=== PATIENT | male | born 1945 | race Caucasian/White ===

== ENCOUNTER → 2018-06-29 | Day surgery (SDC) | payer MEDICARE, OTHER ==
[2018-06-28 11:02] LABS: BASOPHILS % 0.6 % (0.0-1.0); EOSINOPHILS # (AUTO) 0.2 (0.0-0.4); EOSINOPHILS % 3.1 % (0.0-6.0); HEMATOCRIT 40.8 % (38.2-49.6); HEMOGLOBIN 13.5 g/dL (14.0-18.0); LYMPHOCYTES # (AUTO) 2.1 (1.0-3.2); LYMPHOCYTES % 33.1 % (18.0-39.1); MEAN CORPUSCULAR HEMOGLOBIN 31.3 pg (28-32); MEAN CORPUSCULAR HGB CONC 33.1 g/dL (31-35); MEAN CORPUSCULAR VOLUME 94.7 fL (81-99); MONOCYTES # (AUTO) 0.5 (0.2-0.8); MONOCYTES % 8.1 % (4.4-11.3); NEUTROPHILS # (AUTO) 3.4 (2.1-6.9); NEUTROPHILS % 54.8 % (38.7-80.0); PLATELET COUNT 217 x10e3/uL (140-360); RED BLOOD COUNT 4.31 x10e6/uL (4.3-5.7); RED CELL DISTRIBUTION WIDTH 12.4 % (11.7-14.4)
[2018-06-28 12:07] LABS: ALBUMIN 3.9 g/dL (3.5-5.0); ALBUMIN/GLOBULIN RATIO 1.3 (0.8-2.0); ANION GAP 10.5 mmol/L (8-16); CALCIUM 9.7 mg/dL (8.4-10.2); CREATININE, SERUM 1.31 mg/dL (0.72-1.25); POTASSIUM 3.5 mmol/L (3.5-5.1)
[2018-06-28 12:20] LABS: CHOL/HDL RATIO 3.8 (3.9-4.7)
[~2018-06-29] VITALS: Ht 188 cm; Wt 105.2 kg
[2018-06-29] VITALS (11 sets, daily range): BP systolic 100–138; BP diastolic 61–79
[~2018-06-29] MED LIST: ALPRAZOLAM 0.5 MG TAB ONE; AMLODIPINE BESYL5 MG PO; CETIRIZINE HCL5 MG PO; CITALOPRAM HBR10 MG PO; CO Q-1010 MG PO; DIAZEPAM5 MG PO; DIPHENHYDRAMINE HCL 25 MG CAP ONE; ESCITALOPRAM OX20 MG PO; ETODOLAC400 MG PO; FENTANYL CITRATE/PF 100MCG/2 ML INJ ONE; FLUTICASONE PRO16 GM NS; HEPARIN SOD (PORCINE) 1000 UNIT/ML 30ML ONE; HEPARIN SOD/SOD CHLORIDE 2,000 ML ONE; IOPAMIDOL 370 MG/ML 200 ML INFUS..BTL INJ ONE; LIDOCAINE HCL 2% LOCAL 20 ML VIAL ONE; MEN'S ONE DAIL1 EACH PO; MIDAZOLAM HCL 2 MG/2 ML VIAL ONE; NITROGLYCERIN/D5W 200 MCG/ML 250 ML ONE; ONE DAILY FOR1 EAC1 PO; PLAVIX75 MG PO; SODIUM CHLORIDE 0.9% 1000ML 1,000 ML ONE; VERAPAMIL HCL 2.5 MG/ML 2 ML VIAL ONE; VISION VITAMIN1 EAC1 PO; ZOCOR20 MG PO; ZOLPIDEM TARTRA10 MG PO; [UNRECOGNIZED DRUG - CODE] PO
--- OUTSIDE RECORDS SUMMARY | 2018-06-29 06:15 | XMS REPORT | Summary of Care ---
Author Author [facility] Organization [facility] Address Unknown Phone Unavailable Encounter HQ Encntr_alias(FIN) [id number] Date(s): 07/03/16 - 07/03/16 [facility] [address] [place] [address]- Discharge Disposition: Home or Self Care Attending Physician: Elena Blancas MD Referring Physician: Elena Blancas MD Vital Signs No data available for this section Problem List No data available for this section Allergies, Adverse Reactions, Alerts No data available for this section Medications No data available for this section Results No data available for this section Immunizations No data available for this section Procedures No data available for this section Social History No data available for this section Assessment and Plan No data available for this section
--- OUTSIDE RECORDS SUMMARY | 2018-06-29 06:15 | XMS REPORT | Continuity of Care Document ---
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, UNSPEC Active 06/26/2016 [facility] MANTLE CELL LYMPHOMA, UNSPECIFIED SITE Active [facility] Medications Medication Details Route Status Patient Instructions Ordering Provider Order Date Source Allergies, Adverse Reactions, Alerts Substance Category Reaction Severity Reaction type Status Date Reported Comments Source Immunizations Immunization Date Given Site Status Last Updated Comments Source Results Order Name Results Value Reference Range Date Interpretation Comments Source Chest/Abdomen/Pelvis wo IV contrast CT Chest/Abdomen/Pelvis wo IV contrast CT Patient Name: WELLINGTON ALMENDAREZ : 1945; Age: 71 years Male MR: [id number] Study: Chest/Abdomen/Pelvis wo IV contrast CT 07/03/2016 10:42 AM BATTERY CHARGER CLINICAL INDICATION: R13.13 Dysphagia, pharyngeal phase, history of lymphoma COMPARISON: None TECHNIQUE: Multidetector CT imaging was performed from the thoracic inlet through the symphysis with multiplanar reformations obtained , without IV contrast. DLP: 1305 mGy-cm FINDINGS: CHEST: Lung parenchyma: The lungs are clear without evidence of a consolidation. Pleura: No effusion or pneumothorax. Airways: The central airways appear patent. Mediastinum: Heterogeneous thyroid. No significant lymphadenopathy. Coronary artery calcifications. Trace pericardial effusion. Bones and soft tissues: Unremarkable. ABDOMEN/PELVIS: Hepatobiliary: Fatty liver. No focal hepatic lesion. Unremarkable gallbladder. Pancreas: No focal mass or ductal dilatation. Spleen: No splenomegaly. Adrenals: No nodules. Kidneys: No hydronephrosis or renal stones. Pelvic organs: Unremarkable. Peritoneum/Retroperitoneum: No free air or free fluid. Lymph nodes: No lymphadenopathy. Vessels: Unremarkable. Bowel: No significant bowel thickening or dilatation. The appendix is visualized and appears unremarkable. Bones and soft tissues: Small fat-containing left inguinal and umbilical hernias. Degenerative changes of the lumbar spine. Right flank spinal stimulator device noted. IMPRESSION: Fatty liver. Small fat-containing left inguinal and umbilical hernias. : [id number] 07/03/2016 - - Read by: Linette Hale MD Dictated Date/time: 07/03/16 17:13 Electronically Signed by: Linette Hale MD 07/03/16 17:22 FINAL REPORT [facility] Vital Signs Vital Sign Value Date Comments Source Encounters Location Location Details Encounter Type Encounter Number Reason For Visit Attending Provider ADM Date DC Date Status Source [facility] [id number] Elena Blancas 07/03/2016 07/04/2016 [facility] Procedures Procedure Code Date Perfomer Comments Source
--- NOTE | 2018-06-29 09:11 | Operative Report ---
DATE OF PROCEDURE: June 29, 2018 INDICATIONS: Coronary artery disease and abnormal stress test with inferior ischemia. PROCEDURES PERFORMED 1. Left heart catheterization. 2. Selective coronary angiography. 3. Left ventriculography. 4. Deployment of right wrist transradial band. COMPLICATIONS: None. RECOMMENDATIONS: Medical therapy. Access was obtained in the right inguinal artery. A 5-Niuean sheath was placed. Diagnostic coronary angiogram revealed 50% stenosis in the proximal right coronary artery with spasm. The remaining vessel had mild 10% to 20% stenosis. Left main circumflex and left anterior descending artery had mild 10% to 20% stenosis. Excellent flow in all vessels. No critical stenosis or occlusions. No intervention was deemed necessary. LV ejection fraction was 70% with end-diastolic pressure of 12. No gradient across the aortic valve on pullback. Guide and sheath were removed. Right wrist TR band applied. Patient was discharged home same day. Job#: [id number] TONI
== END | disposition home or self-care (01) ==
LOC: CATH LAB 06:12
PROVIDERS: ATTEND Internal Medicine Interventional Cardiology
DX: I25.111 Atherosclerotic heart disease of native coronary artery with angina pectoris with documented spasm (principal); R94.39 Abnormal result of other cardiovascular function study; I10 Essential (primary) hypertension; E78.00 Pure hypercholesterolemia, unspecified; Z01.812 Encounter for preprocedural laboratory examination; M19.90 Unspecified osteoarthritis, unspecified site; Z79.02 Long term (current) use of antithrombotics/antiplatelets; Z85.72 Personal history of non-Hodgkin lymphomas; Z92.3 Personal history of irradiation; Z88.5 Allergy status to narcotic agent; Z88.0 Allergy status to penicillin
CPT/HCPCS: 36415; 80053; 80061; 85025; 93458; C1887; J1644; J2001; J2250; J7030; Q9967

== ENCOUNTER 2019-07-16 22:08 | Inpatient (IN) | payer MEDICARE ==
[~2019-07-16] VITALS: Ht 182.9 cm; Wt 94.0 kg
[~2019-07-16 22:08] MED LIST changes: -ALPRAZOLAM 0.5 MG TAB ONE; -DIPHENHYDRAMINE HCL 25 MG CAP ONE; -FENTANYL CITRATE/PF 100MCG/2 ML INJ ONE; -HEPARIN SOD (PORCINE) 1000 UNIT/ML 30ML ONE; -HEPARIN SOD/SOD CHLORIDE 2,000 ML ONE; -IOPAMIDOL 370 MG/ML 200 ML INFUS..BTL INJ ONE; -LIDOCAINE HCL 2% LOCAL 20 ML VIAL ONE; -MIDAZOLAM HCL 2 MG/2 ML VIAL ONE; -NITROGLYCERIN/D5W 200 MCG/ML 250 ML ONE; -SODIUM CHLORIDE 0.9% 1000ML 1,000 ML ONE; -VERAPAMIL HCL 2.5 MG/ML 2 ML VIAL ONE
--- OUTSIDE RECORDS SUMMARY | 2019-07-16 22:13 | XMS REPORT ---
Author Author [facility] Address Unknown Phone Unavailable Care Team Providers Care Seasonal Warehouse Associate Name Role Phone GIULIANA FONSECA Unavailable Unavailable Problems This patient has no known problems. Allergies, Adverse Reactions, Alerts This patient has no known allergies or adverse reactions. Medications This patient has no known medications. Results Test Description Test Time Test Comments Text Results Atomic Results Result Comments ANAEROBIC CULTURE 2019-07-09 16:32:00 CULTURE (BEAKER) (test yvxl=[id number]) No anaerobes isolated SURGICALLY OBTAINED CULTURE + GRAM [id number] 16:41:00* Test Item Value Reference Range Comments CULTURE (BEAKER) (test qbjp=7771) No growth GRAM STAIN RESULT (BEAKER) (test kwdr=8882) No White blood cells seen GRAM STAIN RESULT (BEAKER) (test oblt=[id number]) No organisms seen SPIN/CONCENTRATION [id number] 14:42:00* Test Item Value Reference Range Comments CONCENTRATION CHARGED (BEAKER) (test ryui=9524) Done
[2019-07-16 22:26] VITALS: BP 147/86
[2019-07-16 22:30] VITALS: BP 131/79
--- NOTE | 2019-07-16 22:45 | NUR ---
Updated Dr. Vargas on patient status, current VS/cardiac rhythm SR. Orders received.
[2019-07-16] MEDS ORDERED: ZOCOR40 MG PO (22:57)
[2019-07-16] MEDS ORDERED: PLAVIX75 MG PO (22:57)
[2019-07-16] MEDS ORDERED: CO Q-10 100 MG1 EACH PO (22:57)
[2019-07-16] MEDS ORDERED: SINGULAIR10 MG PO (22:57)
[2019-07-16] MEDS ORDERED: LEXAPRO10 MG PO (22:57)
[2019-07-16] MEDS ORDERED: IPRATROPIUM BRO15 ML (22:57)
[2019-07-16] MEDS ORDERED: ACCURETIC 20-21 EACH PO (22:57)
[2019-07-16] MEDS ORDERED: TRAZODONE HCL50 MG PO (22:57)
[2019-07-16 23:00] VITALS: BP 139/91
[2019-07-16] MEDS ORDERED: DIAZEPAM 5 MG TAB PO PRN (23:00)
[2019-07-16] MEDS ORDERED: ACETAMINOPHEN 325 MG TAB PO PRN (23:00)
[2019-07-16] MEDS ORDERED: ONDANSETRON HCL INJ 2MG/ML 2ML 2 MG/ML VIAL IV PRN (23:00)
[2019-07-16] MEDS ORDERED: TRAZODONE HCL 50 MG TAB PO PRN (23:00)
[2019-07-16] MEDS ORDERED: IPRATROPIUM BROMIDE 0.06% 42 MCG NASPR NS PRN (23:00)
[2019-07-17] VITALS (18 sets, daily range): BP systolic 109–148; BP diastolic 53–93
[2019-07-17 04:52] LABS: BASOPHILS % 0.5 % (0.0-1.0); EOSINOPHILS # (AUTO) 0.2 (0.0-0.4); EOSINOPHILS % 2.8 % (0.0-6.0); HEMATOCRIT 39.3 % (38.2-49.6); LYMPHOCYTES # (AUTO) 2.4 (1.0-3.2); LYMPHOCYTES % 28.5 % (18.0-39.1); MEAN CORPUSCULAR HEMOGLOBIN 30.7 pg (28-32); MEAN CORPUSCULAR HGB CONC 33.1 g/dL (31-35); MEAN CORPUSCULAR VOLUME 92.7 fL (81-99); MONOCYTES # (AUTO) 0.6 (0.2-0.8); MONOCYTES % 7.5 % (4.4-11.3); NEUTROPHILS # (AUTO) 5.1 (2.1-6.9); NEUTROPHILS % 60.3 % (38.7-80.0); PLATELET COUNT 220 x10e3/uL (140-360); RED BLOOD COUNT 4.24 x10e6/uL (4.3-5.7); RED CELL DISTRIBUTION WIDTH 12.4 % (11.7-14.4)
--- NOTE | 2019-07-17 04:57 | Diagnostic Imaging Report ---
EXAMINATION: CHEST SINGLE (PORTABLE) INDICATION: Atrial fibrillation. COMPARISON: None FINDINGS: TUBES and LINES: None. LUNGS: Lungs are well inflated. Central vascular congestion without pulmonary edema. Patchy bibasilar opacities. PLEURA: No pleural effusion or pneumothorax. HEART AND MEDIASTINUM: The cardiomediastinal silhouette is unremarkable. BONES AND SOFT TISSUES: No acute osseous abnormality. UPPER ABDOMEN: No free air under the diaphragm. IMPRESSION: Central vascular congestion without pulmonary edema. Patchy bibasilar opacities, likely atelectasis, although pneumonia is possible in the appropriate clinical setting. Signed by: Dr. Matteo Cedillo MD on 07/17/2019 4:54 AM
[2019-07-17 05:20] LABS: CREATINE KINASE MB 2.3 ng/mL (0-5.0)
[2019-07-17 05:43] LABS: ALBUMIN 3.6 g/dL (3.5-5.0); ALBUMIN/GLOBULIN RATIO 1.2 (0.8-2.0); ANION GAP 14.5 mmol/L (8-16); CREATININE, SERUM 1.19 mg/dL (0.72-1.25); MAGNESIUM 2.2 MG/DL (1.3-2.1); POTASSIUM 3.5 mmol/L (3.5-5.1)
--- NOTE | 2019-07-17 06:28 | NUR ---
Dr. Bonner and Dr. Good aware of consults.
[2019-07-17] MEDS ORDERED: CLOPIDOGREL BISULFATE 75 MG TAB PO SCH (09:00)
[2019-07-17] MEDS ORDERED: DOCUSATE SODIUM 100 MG CAP PO PRN (09:00)
[2019-07-17] MEDS ORDERED: MULTIVITAMINS/MINERALS TAB PO SCH (09:00)
[2019-07-17] MEDS ORDERED: HYDROCHLOROTHIAZIDE 25 MG TAB PO SCH (09:00)
[2019-07-17] MEDS ORDERED: VIT E ACETATE PO SCH (09:00)
[2019-07-17] MEDS ORDERED: FLUTICASONE PROPIONATE NASAL SPRAY NS SCH (09:00)
[2019-07-17] MEDS ORDERED: QUINAPRIL HCL 20 MG TAB PO SCH (09:00)
[2019-07-17] MEDS ORDERED: UBIDECARENONE PO SCH (09:00)
--- NOTE | 2019-07-17 10:59 | Consultation ---
DATE OF CONSULTATION: Pulmonary Critical Care Consultation CHIEF COMPLAINT: Fast heart rate. HISTORY OF PRESENT ILLNESS: The patient is a 74-year-old man. He has a history of some coronary artery disease with only a 50% blockage. He also has a history of hypertension. Last night, he noticed that his heart rate was fast on his Apple watch. He tried taking some aspirin and some Valium, but his heart rate did not improve. He denied chest pain. He did not have trouble breathing. The patient went to the [facility]. He received some metoprolol and was then transferred to the hospital. After arriving in the hospital, the patient converted back to normal sinus rhythm and is feeling fine this morning. PAST SURGICAL HISTORY: Status post back surgery. PAST MEDICAL HISTORY: 1. Hypertension. 2. Coronary artery disease with no obstructing wheezes. 3. Chronic back pain. SOCIAL HISTORY: The patient is not an active smoker. He is not an active drinker. FAMILY HISTORY: Family history is noncontributory. REVIEW OF SYSTEMS: The patient is afebrile. No headache. He is not complaining of neck pain. There is no chest pain. He did not have any trouble breathing. There is no nausea or vomiting. He has no leg edema. PHYSICAL EXAMINATION: VITAL SIGNS: The patient is afebrile, the blood pressure is 120/93, the pulse is 68, and the saturation is 98%. HEENT: Shows no facial swelling or erythema. CARDIAC: Reveals regular rate and rhythm with normal S1, S2. There are no murmurs or rubs heard. LUNGS: Auscultation of lungs reveals clear breath sounds bilaterally. There is no wheezing. ABDOMEN: Soft, nontender. There is no rebound or guarding. EXTREMITIES: Show no leg edema or calf tenderness. There are no focal neurological complaints. LABORATORY DATA: White blood cell count is 8.5 and hemoglobin is 13. The platelet count is 220. The BUN to creatinine ratio is 20:1.9. The other electrolytes within normal limits. RADIOGRAPHIC DATA: Chest x-ray shows some bibasilar atelectasis. IMPRESSION: 1. Paroxysmal atrial fibrillation, new onset. 2. Hypertension. 3. Chronic back pain. PLAN: 1. The patient is awaiting Cardiology evaluation, but this is back in normal sinus rhythm with no acute symptoms. 2. Consider amiodarone or Eliquis. 3. Echocardiogram and TSH level. MD VICTORIANO Hilliard/DEA /[id number]
[2019-07-17] MEDS ORDERED: METOPROLOL TARTRATE 25 MG TAB PO SCH ×2 (11:00→17:00)
[2019-07-17 12:17] LABS: CREATINE KINASE MB 1.5 ng/mL (0-5.0)
--- NOTE | 2019-07-17 12:39 | History and Physical ---
CHIEF COMPLAINT: Atrial flutter. HISTORY OF PRESENT ILLNESS: This is a 74-year-old male with multiple comorbidities in the past. Apparently was seeing a riddler operator as an outpatient at [facility], who has a history of chronic pain syndrome, has a pain pump, anxiety, hypertension, hyperlipidemia, presented to the [facility] ER due to elevated heart rate. The patient reports that his Iwatch yesterday noticed that his heart rate was really high and notified him due to elevated heart rate. He has experienced this before. Of note, he states that back this week on Thursday, he noticed that his heart rate was high. When he noticed that his Iwatch noticed that his heart rate is high, he checked it on a blood pressure cuff and found to have a heart rate in the 150s. He denies any chest pain, also denies any palpitations, nausea, vomiting, lightheadedness, or dizziness. Of note, he decided to go to the emergency room air at [facility] to be further evaluated. While there, he was found to have atrial flutter and was sent in for further evaluation and management at [facility]. The patient was then sent to the ICU to initially start on a diltiazem drip, but the patient converted to normal sinus rhythm prior to arrival to the ICU. The patient is currently in the ICU, being monitored and evaluated very closely. Cardiology has been consulted as well as the critical care attending. Troponins have been negative. REVIEW OF SYSTEMS: Pertinent positives: Reports just elevated heart rate. Pertinent negatives: Denies any chest pain, nausea, vomiting, diarrhea, dysuria, hematuria, frequency, urgency, lightheadedness, dizziness, abdominal pain, headaches, shortness of breath, cough, congestion, fever, or any other complaints. The rest of 14-point review of systems have been reviewed with the patient and are negative. ALLERGIES: AMOXICILLIN, CODEINE. HOME MEDICATIONS: Plavix, diazepam, Lexapro, Flonase, quinapril, hydrochlorothiazide, Zocor, trazodone. PAST MEDICAL HISTORY: Hypertension, hyperlipidemia, chronic pain syndrome with pump, depression, anxiety, history of CAD in the past. PAST SURGICAL HISTORY: Reports having a left heart catheterization in the past. He has a right abdominal pain pump for chronic pain syndrome. FAMILY HISTORY: Hypertension, diabetes. SOCIAL HISTORY: No drugs or alcohol. Does not smoke. Good social support. PHYSICAL EXAMINATION: VITAL SIGNS: Temperature is 98.8, pulse 72, respiratory rate is 12, blood pressure is 126/71, pulse ox 99% on room air. GENERAL: Not in acute distress. Alert and oriented x3. Cooperative on examination. HEENT: Head; normocephalic, atraumatic. Eyes; pupils are equal, round, and reactive to light bilaterally. Extraocular movements are intact bilaterally. Throat; no evidence of erythema or exudates in the posterior pharynx. Has poor dentition. NECK: Supple. Good range of motion. PULMONARY: Clear to auscultation bilaterally. No wheezing, rales, or rhonchi. No crackles appreciated. CARDIOVASCULAR: Positive S1 and S2. No murmurs, rubs, or gallops appreciated. ABDOMEN: Soft, nondistended, nontender to palpation. Bowel sounds present. MUSCULOSKELETAL: Strength is 5/5 throughout. No evidence of any muscle deficits on examination. No weakness appreciated. NEUROLOGIC: Cranial nerves 2 through 12 grossly intact. No evidence of any neurological deficits on exam. SKIN: Intact. Warm to touch. Good cap refill. PSYCHIATRIC: Normal affect and mood. EXTREMITIES: No edema. Good range of motion throughout. LABORATORY FINDINGS: Show white count is 8.2, hemoglobin 13, hematocrit 39, platelets of 220. Chemistry; sodium 141, potassium 3.5, chloride 106, bicarb 24, anion gap of 14, BUN is 20, creatinine 1.1, glucose 120, calcium 9, magnesium 2.2. LFTs within normal range. Troponins were negative. Albumin was 3.6. MICROBIOLOGY: None. IMAGING STUDIES: Chest x-ray central vascular congestion without pulmonary edema. Patchy bibasilar opacities likely atelectasis. IMPRESSION: 1. Atrial flutter, now in normal sinus rhythm. 2. History of coronary artery disease on Plavix. 3. History of hypertension. 4. Chronic pain syndrome with the pain pump. 5. Depression, anxiety. PLAN: At this time, his heart rate now is normal sinus rhythm. Cardiology has been consulted. We will continue with rate control medications with low-dose metoprolol 12.5 mg b.i.d. We will discuss with Cardiology about anticoagulation therapy. Since he is in the ICU, Pulmonary Critical Care has been consulted as well, but he can be transferred to the medical floor. As for his blood pressure, we resume same antihypertensive medications. Resume pain control that he takes at home. We will get a CBC, chemistry in the morning. We will put him on Lovenox for DVT prophylaxis for now. He is on a heart healthy diet. Once the patient has been cleared by the consultants, the patient can be discharged to home. I am not sure if he will be discharged today or not. We will determine that once Cardiology comes and evaluates him. MD JASON Gonzalez/MODL /[id number]
[2019-07-17 13:14] LABS: CHOL/HDL RATIO 4.3 (3.9-4.7)
[2019-07-17 13:33] LABS: THYROID STIMULATING HORMONE 0.921 uIU/mL (0.350-4.940)
--- NOTE | 2019-07-17 15:48 | NUR ---
updated dr min on hr 52-57 ok to give metoprolol and eliquis before discharging pt today.
--- NOTE | 2019-07-17 16:16 | Consultation ---
DATE OF CONSULTATION: Cardiac Consultation REASON FOR CONSULTATION: Atrial flutter. HISTORY OF PRESENT ILLNESS: Very nice 74-year-old gentleman, who is known with longstanding history of hypertension, degenerative joint disease of the back, status post pump implantation, and hypercholesterolemia. The patient does have mild coronary artery disease by cardiac catheterization. He is followed normally in [facility]. The patient was in his usual status of health. He noted a little bit of palpitation and he looked at his Apple watch and his heart rate was irregular. Rightly, so he came to the emergency room. He was in atrial flutter with fast ventricular response. He was given 2 doses of beta-nimisha, admitted to ICU and the patient converted to normal sinus rhythm. The patient doing well. He wants to go home and he is insisting on going home. He denied having any angina. His lab showed normal first set of cardiac enzymes. Electrolytes showed potassium of 3.5, BUN 20, and creatinine of 1.2. He is doing well. He denied having any cardiac symptoms. REVIEW OF SYSTEMS: GENERAL: No fever. No chills. HEENT: Congestion, sinus allergies. He takes medication for that. PULMONARY: No cough. No hemoptysis. CARDIAC: Palpitation noted, prior history of CAD, but it is mild by cardiac catheterization in June 2018. No orthopnea. No paroxysmal nocturnal dyspnea. No syncope. No presyncope. No prior palpitation or SVT. GI: No hematemesis. No melena. : No hematuria. No dysuria. MUSCULOSKELETAL: Low back pain. The patient just have recently pump implantation almost 2 weeks ago. SOCIAL HISTORY: He is . He is a retired salesman. He is nonsmoker. No alcohol drinker. PAST MEDICAL HISTORY: 1. Septoplasty. 2. Foot surgery. 3. Back surgery in 2003. 4. Nerve stimulator implant in 2004. 5. Recent battery change 2 weeks ago. 6. Bilateral arthroscopic knee surgery. 7. Cardiac cath in June 2018 with maximum 50% RCA lesion. 8. Hammer toe surgery. In 2002, the patient diagnosed with non-Hodgkin lymphoma with spot on forehead, treated successfully with radiation. HOME MEDICATIONS: Accuretic 20/25 one tablet a day, Plavix 75 mg a day, multivitamins, CoQ10, fluticasone spray, Zocor 40 mg a day, Lexapro 20 mg a day, Singulair 10 mg a day, trazodone 50 mg a day, Valium 5 mg twice a day, Astelin nasal drop, and ipratropium bromide 2 spray in each nostril 3 times a day. FAMILY HISTORY: Father of old age with congestive heart failure. Mother of breast cancer. No premature coronary artery disease history in the family. PHYSICAL EXAMINATION: VITAL SIGNS: Height of 6 feet, weight of 207 pounds, blood pressure 120/70, heart rate of 60, and temperature of 98 Fahrenheit. HEENT: Pupils are reactive. NECK: No elevation of jugular venous pulsation. No bruit. CHEST: Clear to auscultation and percussion. HEART: PMI 5th left intercostal space. Normal first and second heart sounds. ABDOMEN: Soft. Good bowel sounds. No organomegaly. No abdominal bruits. There is dressing noted in the right mid abdomen site of the nerve stimulator change. EXTREMITIES: No cyanosis. No clubbing. No edema. Good distal pulses. NEUROLOGIC: Nonfocal. LABORATORY DATA: Sodium of 141, potassium 3.5, BUN 20, creatinine of 1.1, and glucose of 120. White blood cells count of 8.5, hemoglobin 13, hematocrit 39%, and platelet count of 220. Chest x-ray showed no pulmonary edema. Prominence of marking noted. EKG, possible atrial flutter versus maybe AV deandra re-entry tachycardia. Difficult to certain. IMPRESSION AND PLAN: 1. Atrial arrhythmias. 2. Hypertension. 3. Mild coronary artery disease. 4. Chronic sinus problem. 5. Chronic back pain with nerve stimulator. 6. Hyperlipidemia, on statin. Cardiac thompson, I recommend small dose of beta-nimisha. We calculated his CHADS score, it is at least 2, so we will start Eliquis 5 mg twice a day. Side effects of Eliquis are explained. We will stop the Plavix. We gave copy of his EKG to take to his doctors in [facility] for further consideration and management, possible ablation. Case discussed and explained. Questions are answered. MD INDIRA Helton/DEA /[id number]
[2019-07-17] MEDS ORDERED: ENOXAPARIN SOD INJ 40 MG/0.4 ML SYR SC SCH (17:00)
[2019-07-17] MEDS ORDERED: MONTELUKAST SODIUM 10 MG TAB PO SCH (17:00)
[2019-07-17] MEDS ORDERED: APIXABAN 5 MG TABLET PO SCH (17:00)
[2019-07-17] MEDS ORDERED: ESCITALOPRAM OXALATE 10 MG TAB PO SCH (21:00)
[2019-07-17] MEDS ORDERED: SIMVASTATIN 40 MG TAB PO SCH (21:00)
--- NOTE | 2019-07-18 02:18 | Discharge Summary ---
FINAL DISCHARGE DIAGNOSES: 1. Atrial flutter. 2. History of coronary artery disease. 3. History of hypertension. 4. Chronic pain syndrome, on pain pump. 5. History of depression and anxiety. CONSULTANTS: Cardiology. PHYSICAL EXAMINATION: VITAL SIGNS: Temperature is 98.5, pulse 57, respiratory rate is 15, blood pressure 134/73, and pulse ox 99% on room air. LABORATORY DATA: Labs show white count 8.5, hemoglobin 13, hematocrit 39, and platelets of 220. Chemistry; sodium 141, potassium 3.5, chloride 106, bicarb 24, anion gap of 14, BUN is 20, creatinine is 1.1, glucose 120, calcium 9, magnesium 2.2, total bilirubin was 0.9, AST 16, ALT 16, alkaline phosphatase 63. Troponins were all negative. Total protein 6.5, albumin 3.6. LDL was 112. TSH 0.921. MICROBIOLOGY: None. IMAGING STUDIES: Chest x-ray was performed, shows central vascular congestion without pulmonary edema. HOSPITAL COURSE: This is a 74-year-old male with multiple comorbidities of note, comes into the ED in the [facility] with complaint to underlying palpitations. The patient reports that he was checking his watch yesterday on his Iwatch and he noticed that his heart rate was greater than 120, which he manually checked and found his heart rate to be in the 150s. He presented to the outside ER with a heart rate in the 150s, found to have atrial flutter. The patient was given metoprolol and was sent to the [facility] ICU for potential diltiazem drip. Upon arrival to the hospital here, he was found to be in normal sinus rhythm. EKG from an outside ER shows atrial flutter. Cardiology was consulted. While here, the patient was started on oral metoprolol and oral Eliquis. The patient was discharged on oral metoprolol 25 mg p.o. b.i.d. as well as oral Eliquis 5 mg p.o. b.i.d. and was initiated here prior to being discharged. A 2D echo shows an EF of 55%. The patient was cleared for discharge by Cardiology. On discharge, the patient was doing well back to normal baseline with no other complaints. He was actually eager to being discharged home. On the day of discharge, vital signs were stable, labs reviewed and stable. The patient was seen, evaluated, and examined thoroughly on the day of discharge. No other complaints. The patient verbalized understanding and agrees to plan of care to follow up accordingly as an outpatient with primary care physician in 1 week and microsoft bi architect in 2 weeks' time. MEDICATIONS: See med reconciliation form including metoprolol 25 mg p.o. b.i.d. as well as Eliquis 5 mg p.o. b.i.d. DISPOSITION: Home. CONDITION: Stable. DIET: Heart healthy. In the event of any worsening symptoms, the patient was advised to come back to the ED for further evaluation. Discharge summary took greater than 35 minutes. MD JASON Gonzalez/DEA /[id number]
== END 2019-07-17 16:19 | disposition home or self-care (01) | DRG 310 ==
LOC: ICU 22:08
PROVIDERS: ADMIT Internal Medicine; ATTEND Internal Medicine
DX: I48.92 Unspecified atrial flutter (principal); I10 Essential (primary) hypertension; I25.10 Atherosclerotic heart disease of native coronary artery without angina pectoris; Z79.01 Long term (current) use of anticoagulants; F32.9 Major depressive disorder, single episode, unspecified; F41.9 Anxiety disorder, unspecified; G89.4 Chronic pain syndrome; E78.5 Hyperlipidemia, unspecified; Z96.82 Presence of neurostimulator; J32.9 Chronic sinusitis, unspecified
CPT/HCPCS: 36415; 71045; 80053; 80061; 82550; 82553; 83735; 84443; 84484; 85025; 93005; 93306